=== PATIENT | male | born 2000 | race American Indian/Alaskan Native ===

== ENCOUNTER 2020-12-20 20:13 | Emergency (ER) | payer MEDICAID, OTHER ==
[2020-12-20] MEDS ORDERED: ACETAMINOPHEN 500 MG TAB PO ONE (20:28)
[2020-12-20] MEDS ORDERED: TETANUS,DIPH,PERTUSS(ACELL) VACCINE 0.5 ML SYRINGE IM ONE (20:28)
--- NOTE | 2020-12-20 21:17 | Cat Scan Report ---
CT HEAD WITHOUT CONTRAST INDICATION / CLINICAL INFORMATION: Head injury - hit head and face against [facility]. TECHNIQUE: All CT scans at this location are performed using CT dose reduction for ALARA by means of automated e xposure control. COMPARISON: None available. FINDINGS: HEMORRHAGE: No evidence of intracranial hemorrhage or extra-axial fluid collection. EXTRA-AXIAL SPACES: Cortical sulci, sylvian fissures and basilar cisterns have an unremarkable appear ance. VENTRICULAR SYSTEM: The third and lateral ventricles are of normal size and configuration. CEREBRAL PARENCHYMA: No areas of abnormal brain parenchymal attenuation are identified. There is no i ndication of recent infarction. MIDLINE SHIFT OR HERNIATION: There is no mass effect. CEREBELLUM / BRAINSTEM: Brainstem and cerebellum have an unremarkable appearance. MIDLINE STRUCTURES:No abnormalities of the pituitary gland or pineal region are identified. INTRACRANIAL VESSELS:No abnormalities are identified on this noncontrast head CT. ORBITS: visualized portions of the orbits have an unremarkable appearance. SOFT TISSUES of HEAD: Hypertrophic changes are noted involving the temporalis musculature bilaterally . This can be associated with bruxism. CALVARIUM: Evaluation of bone windows reveals no abnormalities. PARANASAL SINUSES / MASTOID AIR CELLS: Visualized portions of the paranasal sinuses are free from inf lammatory mucosal disease. Mastoid air cells are normally pneumatized. IMPRESSION: 1. No intracranial abnormality. Signer Name: Mil Zapata MD Signed: 12/20/2020 9:12 PM Workstation Name: [id number]
--- NOTE | 2020-12-20 21:20 | Cat Scan Report ---
CT MAXILLOFACIAL WITHOUT CONTRAST INDICATION / CLINICAL INFORMATION: Head injury - hit head and face against [facility]. TECHNIQUE: All CT scans at this location are performed using CT dose reduction for ALARA by means of automated e xposure control. COMPARISON: None available. FINDINGS: FACIAL BONES: No fracture or other significant abnormality. PANEL WIRER SPACES:Evaluation of the hardwood floor sander space structures reveal no abnormalities. SALIVARY GLANDS:The parotid glands and submandibular salivary glands have an unremarkable appearance. PARANASAL SINUSES: No significant abnormality. NASAL CAVITY: No abnormality. ORBITS: Globes, optic nerves and extraocular muscles have an unremarkable appearance. TEMPORAL BONES:Visualized mastoid air cells and the middle ear cavities are normally pneumatized. VISUALIZED INTRACRANIAL STRUCTURES: Refer to head CT dictated separately. ADDITIONAL FINDINGS: Soft tissue swelling is observed from the tip of the nose up towards the nasion. There is no associated nasal bone fracture. IMPRESSION: 1. No indication of facial fracture. Signer Name: Mil Zapata MD Signed: 12/20/2020 9:15 PM Workstation Name: [id number]
--- NOTE | 2020-12-20 21:22 | Cat Scan Report ---
CT CERVICAL SPINE WITHOUT CONTRAST INDICATION / CLINICAL INFORMATION: Head injury - hit head and face against [place]. TECHNIQUE: Axial CT images were obtained through the cervical spine. Sagittal and coronal reformatted images wer e produced. All CT scans at this location are performed using CT dose reduction for ALARA by means of automated exposure control. COMPARISON: None available. FINDINGS: ALIGNMENT: No significant abnormality. No indication of traumatic subluxation. VERTEBRAE: No evidence of fracture. DISC SPACES: Disc height is normally maintained throughout. DEGENERATIVE CHANGES: No indication of central canal stenosis or neuroforaminal narrowing. CRANIOCERVICAL JUNCTION:No significant abnormality. SPINAL CANAL: Central spinal canal is adequately maintained throughout. PARASPINAL SOFT TISSUES: No significant abnormality. LUNG APICES: No significant abnormality of visualized lungs. IMPRESSION: 1. No indication of fracture or traumatic subluxation. 2. Normal CT cervical spine. Signer Name: Mil Zapata MD Signed: 12/20/2020 9:17 PM Workstation Name: [id number]
--- NOTE | 2020-12-20 21:40 | Emergency Department Report ---
ED Head Trauma HPI - General Chief complaint: Wound/Laceration Stated complaint: SMASHED HEAD THROUGH [employer] CAR Source: police Mode of arrival: Ambulatory Limitations: Other - History of Present Illness Initial comments: Patient is a 20-year-old -[place] male with a history of major depressive disorder and asthma who presents to the ED for evaluation accompanied by a [facility] police department secretary after he repeatedly hit his head and face against the rear windshield of [facility] Sheriff vehicle during his arrest at [facility] about 2 hours ago. In the process, patient states that he suffered left supraorbital bleeding abrasion wounds and nosebleed with swollen face. Patient now complains of headache and facial pain. Patient states that he is not up-to-date with his tetanus vaccinations. Patient denies loss of consciousness, dizziness, syncope, chest pain or shortness of breath, change in vision, dental injuries or seizures. MD Complaint: head injury, other (Facial injury and swelling) -: Sudden, hour(s) (2) Arrival Conditions: Negative: C-spine immobilization present, spinal board immobilization present Mechanism of Injury: other (Self-inflicted injury on his face by hitting the windshield repeatedly with his head) Location: frontal, face Loss of Consciousness: no Previous Trauma to this Area: No Place: home Radiation: none Severity: moderate Severity scale (0 -10): 5 Quality: sharp, aching Consistency: constant Provoking factors: emotional stress (During his arrest by police) Other Injuries: other (Mild facial swelling and right supraorbital abrasion) Associated Symptoms: denies other symptoms. denies: confusion, amnesia, repetitive questioning, vision changes, nausea, vomiting, vertigo, syncope, numbness, weakness, tingling, neck pain, other - Related Data Previous Rx's Medication Instructions Recorded Last Taken Type Naproxen 500 mg PO Q12H PRN #20 tablet 12/20/20 Unknown Rx cephALEXin [Keflex] 500 mg PO Q12HR #20 cap 12/20/20 Unknown Rx Allergies/Adverse reactions: Allergies Allergy/AdvReac Type Severity Reaction Status Date / Time No Known Allergies Allergy Unverified 12/20/20 20:16 ED Review of Systems ROS: Stated complaint: SMASHED HEAD THROUGH [employer] CAR Other details as noted in HPI Constitutional: denies: chills, fever Eyes: other (Mild left supraorbital abrasion wound). denies: eye pain, eye discharge, vision change ENT: epistaxis. denies: ear pain, throat pain Respiratory: denies: cough, shortness of breath, wheezing Cardiovascular: denies: chest pain, palpitations Endocrine: no symptoms reported Gastrointestinal: denies: abdominal pain, nausea, diarrhea Genitourinary: denies: urgency, dysuria Musculoskeletal: denies: back pain, joint swelling, arthralgia Skin: other (Mild abrasion on left supraorbital area). denies: rash, lesions Neurological: headache. denies: weakness, paresthesias Psychiatric: denies: anxiety, depression Hematological/Lymphatic: denies: easy bleeding, easy bruising ED Past Medical Hx - Past Medical History Previous Medical History?: Yes Hx Psychiatric Treatment: Yes (major depressive disorder) Hx Asthma: Yes - Surgical History Past Surgical History?: No - Medications Home Medications: Home Medications Medication Instructions Recorded Confirmed Last Taken Type Naproxen 500 mg PO Q12H PRN #20 tablet 12/20/20 Unknown Rx cephALEXin [Keflex] 500 mg PO Q12HR #20 cap 12/20/20 Unknown Rx ED Physical Exam - General Limitations: Other General appearance: alert, in no apparent distress - Head Head exam: Present: other (Mild left supraorbital bleeding abrasion wounds) - Eye Eye exam: Present: normal appearance, PERRL, EOMI, periorbital swelling (Left supraorbital), periorbital tenderness (Localized left periorbital swelling and tenderness due to mild left supraorbital abrasion) Pupils: Present: normal accommodation - ENT ENT exam: Present: normal exam, normal orophraynx, mucous membranes moist, TM's normal bilaterally, normal external ear exam, other (bilateral nosebleed, resolved) - Neck Neck exam: Present: normal inspection, full ROM. Absent: tenderness - Respiratory Respiratory exam: Present: normal lung sounds bilaterally. Absent: respiratory distress, wheezes, rales, rhonchi, chest wall tenderness, accessory muscle use, decreased breath sounds - Cardiovascular Cardiovascular Exam: Present: regular rate, normal rhythm, normal heart sounds. Absent: systolic murmur, diastolic murmur, rubs, gallop - GI/Abdominal GI/Abdominal exam: Present: soft, normal bowel sounds. Absent: tenderness, guarding, rebound, hyperactive bowel sounds, hypoactive bowel sounds, organomegaly - Extremities Exam Extremities exam: Present: normal inspection, full ROM, normal capillary refill - Back Exam Back exam: Present: normal inspection, full ROM. Absent: tenderness, CVA tenderness (R), CVA tenderness (L), muscle spasm, paraspinal tenderness, vertebral tenderness - Neurological Exam Neurological exam: Present: alert, oriented X3, CN II-XII intact, normal gait, reflexes normal - Psychiatric Psychiatric exam: Present: normal affect, normal mood - Skin Skin exam: Present: warm, dry, intact, normal color, abrasion (left supraorbital mild abrasion and mild swelling). Absent: rash ED Course Vital Signs 12/20/20 20:19 Temperature 98.9 F Pulse Rate 89 Respiratory 16 Rate O2 Sat by Pulse 100 Oximetry - Radiology Data Radiology results: report reviewed, image reviewed [facility] [address] [id number] Cat Scan Report Signed Patient: ISABEL LUBIN MR#: [id number] 300 : 2000 Acct:[id number] Age/Sex: 20 / M ADM Date: 12/20/20 Loc: ED Attending Dr: Ordering Physician: OLY MORENO Date of Service: 12/20/20 Procedure(s): CT head/brain wo con Accession Number(s): [id number] cc: OLY MORENO CT HEAD WITHOUT CONTRAST INDICATION / CLINICAL INFORMATION: Head injury - hit head and face against windshield. TECHNIQUE: All CT scans at this location are performed using CT dose reduction for ALARA by means of automated exposure control. COMPARISON: None available. FINDINGS: HEMORRHAGE: No evidence of intracranial hemorrhage or extra-axial fluid collection. EXTRA-AXIAL SPACES: Cortical sulci, sylvian fissures and basilar cisterns have an unremarkable appearance. VENTRICULAR SYSTEM: The third and lateral ventricles are of normal size and configuration. CEREBRAL PARENCHYMA: No areas of abnormal brain parenchymal attenuation are identified. There is no indication of recent infarction. MIDLINE SHIFT OR HERNIATION: There is no mass effect. CEREBELLUM / BRAINSTEM: Brainstem and cerebellum have an unremarkable appearance. MIDLINE STRUCTURES:No abnormalities of the pituitary gland or pineal region are identified. INTRACRANIAL VESSELS:No abnormalities are identified on this noncontrast head CT. ORBITS: visualized portions of the orbits have an unremarkable appearance. SOFT TISSUES of HEAD: Hypertrophic changes are noted involving the temporalis musculature bilaterally. This can be associated with bruxism. CALVARIUM: Evaluation of bone windows reveals no abnormalities. PARANASAL SINUSES / MASTOID AIR CELLS: Visualized portions of the paranasal sinuses are free from inflammatory mucosal disease. Mastoid air cells are normally pneumatized. IMPRESSION: 1. No intracranial abnormality. Signer Name: Mil Zapata MD Signed: 12/20/2020 9:12 PM Workstation Name: [id number] Transcribed By: Dictated By: Mil Zapata MD Electronically Authenticated By: Mil Zapata MD Signed Date/Time: 12/20/202111 DD/ 09 TD/TT: [facility] [address] [place] [address] Cat Scan Report Signed Patient: ISABEL LUBIN MR#: [id number] 300 : 2000 Acct:[id number] Age/Sex: 20 / M ADM Date: 12/20/20 Loc: ED Attending Dr: Ordering Physician: OLY MORENO Date of Service: 12/20/20 Procedure(s): CT cervical spine wo con Accession Number(s): [id number] cc: OLY MORENO CT CERVICAL SPINE WITHOUT CONTRAST INDICATION / CLINICAL INFORMATION: Head injury - hit head and face against windshield. TECHNIQUE: Axial CT images were obtained through the cervical spine. Sagittal and coronal reformatted images were produced. All CT scans at this location are performed using CT dose reduction for ALARA by means of automated exposure control. COMPARISON: None available. FINDINGS: ALIGNMENT: No significant abnormality. No indication of traumatic subluxation. VERTEBRAE: No evidence of fracture. DISC SPACES: Disc height is normally maintained throughout. DEGENERATIVE CHANGES: No indication of central canal stenosis or neuroforaminal narrowing. CRANIOCERVICAL JUNCTION:No significant abnormality. SPINAL CANAL: Central spinal canal is adequately maintained throughout. PARASPINAL SOFT TISSUES: No significant abnormality. LUNG APICES: No significant abnormality of visualized lungs. IMPRESSION: 1. No indication of fracture or traumatic subluxation. 2. Normal CT cervical spine. Signer Name: Mil Zapata MD Signed: 12/20/2020 9:17 PM Workstation Name: [id number] Transcribed By: Dictated By: Mil Zapata MD Electronically Authenticated By: Mil Zapata MD Signed Date/Time: 12/20/202116 DD/ 14 TD/TT: [facility] [address] [place] [address] Cat Scan Report Signed Patient: ISABEL LUBIN MR#: [id number] 300 : 2000 Acct:[id number] Age/Sex: 20 / M ADM Date: 12/20/20 Loc: ED Attending Dr: Ordering Physician: OLY MORENO Date of Service: 12/20/20 Procedure(s): CT facial bones wo con Accession Number(s): [id number] cc: OLY MORENO CT MAXILLOFACIAL WITHOUT CONTRAST INDICATION / CLINICAL INFORMATION: Head injury - hit head and face against windshield. TECHNIQUE: All CT scans at this location are performed using CT dose reduction for ALARA by means of automated exposure control. COMPARISON: None available. FINDINGS: FACIAL BONES: No fracture or other significant abnormality. FUR OPERATOR SPACES:Evaluation of the manufacturing project engineer space structures reveal no abnormalities. SALIVARY GLANDS:The parotid glands and submandibular salivary glands have an unremarkable appearance. PARANASAL SINUSES: No significant abnormality. NASAL CAVITY: No abnormality. ORBITS: Globes, optic nerves and extraocular muscles have an unremarkable appearance. TEMPORAL BONES:Visualized mastoid air cells and the middle ear cavities are normally pneumatized. VISUALIZED INTRACRANIAL STRUCTURES: Refer to head CT dictated separately. ADDITIONAL FINDINGS: Soft tissue swelling is observed from the tip of the nose up towards the nasion. There is no associated nasal bone fracture. IMPRESSION: 1. No indication of facial fracture. Signer Name: Mil Zapata MD Signed: 12/20/2020 9:15 PM Workstation Name: [id number] Transcribed By: Dictated By: Mil Zapata MD Electronically Authenticated By: Mil Zapata MD Signed Date/Time: 12/20/202114 DD/ 11 TD/TT: - Medical Decision Making This is a 20-year-old -[place] male with a history of major depressive disorder and asthma who presents to the ED for evaluation accompanied by a [facility] police department secretary after he repeatedly hit his head and face against the rear windshield of [facility] Sheriff vehicle during his arrest at [facility] about 2 hours ago. In the process, patient states that he suffered left supraorbital bleeding abrasion wounds and nosebleed with swollen face. Patient now complains of headache and facial pain. Patient states that he is not up-to-date with his tetanus vaccinations. In the ED, patient is alert and oriented x3 and is not in any distress. Patient received booster tetanus vaccinations in the ED. Patient also received pain medications for his injuries. The head CT scan without contrast showed no acute intracranial abnormalities or hemorrhage. The facial CT scan without contrast showed no orbital bone fractures or any other facial bone fractures but soft tissue swelling. The C-spine CT scan without contrast showed no acute cervical disc or spine fractures and subluxations. On reevaluation, patient's pain is well controlled medications. Patient will discharged from the ED to the custody of the law enforcement officers from [facility]'s department. Patient was advised to follow-up with his primary care physician in 5 to 7 days for reevaluation or return to the ED immediately if symptoms get worse. - Differential Diagnosis Cervical sprain; facial contusion; facial bone fractures; head injury; - Core Measures AMI Core Measures Followed: No Measure Exclusions: not indicated - NEXUS Criteria Focal neurological deficit present: No Midline spinal tenderness present: No Altered level of consciousness: No Intoxication present: No Distracting injury present: No NEXUS results: C-Spine can be cleared clinically by these results. Imaging is not required. Critical care attestation.: If time is entered above; I have spent that time in minutes in the direct care of this critically ill patient, excluding procedure time. ED Disposition Clinical Impression: Contusion of face, scalp and neck Qualifiers: Encounter type: initial encounter Qualified Code(s): S00.83XA - Contusion of other part of head, initial encounter; S00.03XA - Contusion of scalp, initial encounter; S10.93XA - Contusion of unspecified part of neck, initial encounter Abrasion of face Qualifiers: Encounter type: initial encounter Qualified Code(s): S00.81XA - Abrasion of other part of head, initial encounter Disposition: 01 HOME / SELF CARE / HOMELESS Is pt being admited?: No Does the pt Need Aspirin: No Condition: Stable Instructions: Facial or Scalp Contusion, [id number], Abrasion, [id number] Additional Instructions: The head CT scan without contrast showed no acute intracranial abnormalities or hemorrhage. Facial CT scan without contrast showed no acute facial bone fractures or subluxations. The C-spine CT scan without contrast showed no acute cervical disc or spine fractures and subluxations. Therefore take medication with food, drink plenty of fluids and follow-up with your primary care physician in 7 to 10 days for reevaluation. Return to the ED immediately if symptoms get worse. Prescriptions: cephALEXin [Keflex] 500 mg PO Q12HR #20 cap Naproxen 500 mg PO Q12H PRN #20 tablet PRN Reason: Headache Referrals: [facility] [Provider Group] - 3-5 Days Time of Disposition: 21:53 Print Language: AFGHAN
== END 2020-12-20 22:18 | disposition home or self-care (01) ==
LOC: ED 20:13
DX: S00.83XA Contusion of other part of head, initial encounter (principal); S10.93XA Contusion of unspecified part of neck, initial encounter; S00.03XA Contusion of scalp, initial encounter; S00.81XA Abrasion of other part of head, initial encounter; F32.9 Major depressive disorder, single episode, unspecified; J45.909 Unspecified asthma, uncomplicated; W22.8XXA Striking against or struck by other objects, initial encounter; Y93.89 Activity, other specified; Y92.89 Other specified places as the place of occurrence of the external cause; Y99.8 Other external cause status
CPT/HCPCS: 70450; 70486; 72125; 90471; 90715; 99283